=== PATIENT | female | born 1970 | race Caucasian/White ===

== ENCOUNTER 2020-11-17 19:54 | Emergency (ER) | payer SELFPAY ==
[~2020-11-17] VITALS: Ht 177.8 cm; Wt 120.2 kg
[2020-11-17 21:04] LABS: BASOPHILS ABSOLUTE AUTO 0.08 K/mm3 (0.00-0.23); BASOPHILS PERCENT AUTO 1 % (0-2); EOSINOPHILS ABSOLUTE AUTO 0.44 K/mm3 (0.00-0.68); EOSINOPHILS PERCENT AUTO 6 % (0-6); Hemoglobin 13.8 g/dL (11.5-16.0); IMMATURE GRAN ABSOLUTE AUTO 0.04 K/mm3 (0.00-0.10); IMMATURE GRAN PERCENT AUTO 1 % (0-1); LYMPHOCYTES ABSOLUTE AUTO 2.19 K/mm3 (0.84-5.20); LYMPHOCYTES PERCENT AUTO 32 % (21-46); MONOCYTES ABSOLUTE AUTO 0.58 K/mm3 (0.16-1.47); MONOCYTES PERCENT AUTO 9 % (4-13); Mean Corpuscular HGB 36.2 pg (26.0-34.0); Mean Corpuscular HGB Conc 34.5 g/dL (31.5-36.5); Mean Corpuscular Volume 105 fL (80-100); Mean Platelet Volume 9.4 fL (9.1-12.4); NEUTROPHILS ABSOLUTE AUTO 3.53 K/mm3 (1.96-9.15); NEUTROPHILS PERCENT AUTO 51 % (41-73); Platelet Count 274 K/mm3 (150-400); RDW Coefficient Variation 13.3 % (11.7-14.2); RDW Standard Deviation 51.6 fL (35.1-46.3); Red Blood Cell Count 3.81 M/mm3 (3.80-5.20); White Blood Cell Count 6.86 K/mm3 (4.00-11.30)
[2020-11-17 21:22] LABS: Alanine Aminotransfer (ALT/SGP 30 U/L (12-78); Albumin, Blood 3.2 g/dL (3.4-5.0); Albumin/Globulin Ratio 0.8 (0.8-1.8); Alk Phos 91 U/L (50-136); Anion Gap 4 mmol/L (6-16); Aspartate Aminotrans (AST/SGOT 29 U/L (12-37); Bilirubin, Total 0.2 mg/dL (0.1-1.0); Blood Urea Nitrogen 14 mg/dL (8-24); Bun/Creatinine Ratio 18.6 (12.0-20.0); CO2, Blood 27 mmol/L (21-32); Calcium, Blood 8.3 mg/dL (8.5-10.1); Chloride, Blood 109 mmol/L (98-108); Creatinine, Blood 0.75 mg/dL (0.40-1.00); Globulin, Blood 3.8 g/dL (2.2-4.0); Glomerular Filtration Rate >60 (60-); Glucose, Blood 79 mg/dL (70-99); Sodium, Blood 140 mmol/L (136-145); Troponin I <0.015 ng/mL (0.000-0.040)
[2020-11-17] MEDS ORDERED: NAPR220 PO (22:58)
[2020-11-17] MEDS ORDERED: ALBUTEROL0.63 MG/3 (22:59)
[2020-11-18] MEDS ORDERED: IPRAT-ALBUT 0.5-3 ML NEB (00:08)
== END 2020-11-18 00:32 | disposition home or self-care (01) ==
LOC: ER 19:54
PROVIDERS: Physician Assistant
DX: R05 Cough (principal); R06.00 Dyspnea, unspecified; J45.909 Unspecified asthma, uncomplicated; F17.210 Nicotine dependence, cigarettes, uncomplicated; Z79.899 Other long term (current) drug therapy
CPT/HCPCS: 71045; 80053; 83690; 83880; 84484; 85025; 93005; 93010; 94640; 99285-25; A9270

== ENCOUNTER 2021-03-21 19:51 | Emergency (ER) | payer SELFPAY ==
[~2021-03-21] VITALS: Ht 177.8 cm; Wt 127.0 kg
[~2021-03-21 19:51] MED LIST: ALBUTEROL0.63 MG/3; IPRAT-ALBUT 0.5-3 ML NEB; NAPR220 PO
[2021-03-21 21:17] LABS: BASOPHILS ABSOLUTE AUTO 0.06 K/mm3 (0.00-0.23); BASOPHILS PERCENT AUTO 1 % (0-2); EOSINOPHILS ABSOLUTE AUTO 0.44 K/mm3 (0.00-0.68); EOSINOPHILS PERCENT AUTO 7 % (0-6); Hematocrit 38.4 % (33.0-51.0); Hemoglobin 12.7 g/dL (11.5-16.0); IMMATURE GRAN ABSOLUTE AUTO 0.03 K/mm3 (0.00-0.10); IMMATURE GRAN PERCENT AUTO 1 % (0-1); LYMPHOCYTES ABSOLUTE AUTO 2.26 K/mm3 (0.84-5.20); LYMPHOCYTES PERCENT AUTO 36 % (21-46); MONOCYTES ABSOLUTE AUTO 0.54 K/mm3 (0.16-1.47); MONOCYTES PERCENT AUTO 9 % (4-13); Mean Corpuscular HGB 35.3 pg (26.0-34.0); Mean Corpuscular HGB Conc 33.1 g/dL (31.5-36.5); Mean Corpuscular Volume 107 fL (80-100); Mean Platelet Volume 9.3 fL (9.1-12.4); NEUTROPHILS ABSOLUTE AUTO 3.02 K/mm3 (1.96-9.15); NEUTROPHILS PERCENT AUTO 48 % (41-73); Platelet Count 256 K/mm3 (150-400); RDW Coefficient Variation 13.9 % (11.7-14.2); White Blood Cell Count 6.35 K/mm3 (4.00-11.30)
[2021-03-21 21:35] LABS: Alanine Aminotransfer (ALT/SGP 22 U/L (12-78); Albumin, Blood 3.2 g/dL (3.4-5.0); Albumin/Globulin Ratio 0.9 (0.8-1.8); Alk Phos 94 U/L (50-136); Anion Gap 4 mmol/L (6-16); Aspartate Aminotrans (AST/SGOT 15 U/L (12-37); Bilirubin, Total 0.2 mg/dL (0.1-1.0); Blood Urea Nitrogen 23 mg/dL (8-24); Bun/Creatinine Ratio 31.3 (12.0-20.0); CO2, Blood 25 mmol/L (21-32); Calcium, Blood 8.5 mg/dL (8.5-10.1); Chloride, Blood 112 mmol/L (98-108); Creatinine, Blood 0.73 mg/dL (0.40-1.00); Globulin, Blood 3.4 g/dL (2.2-4.0); Glomerular Filtration Rate >60 (60-); Glucose, Blood 88 mg/dL (70-99); Potassium, Blood 3.8 mmol/L (3.5-5.5); Sodium, Blood 141 mmol/L (136-145); Total Protein, Blood 6.6 g/dL (6.4-8.2)
[2021-03-21 23:02] LABS: Source, Urine Clean Catch
[2021-03-21 23:08] LABS: Bilirubin, Urine Neg (Neg); Blood, Urine 1+ (Neg); Glucose Qualitative, Urine Neg (Neg); Ketones, Urine Neg (Neg); Leukocyte Esterase, Urine 1+ (Neg); Nitrite, Urine Neg (Neg); Protein, Urine 1+ (Neg); Specific Gravity, Urine 1.025 (1.003-1.022); Urobilinogen, Urine NORM (Normal)
[2021-03-21 23:16] LABS: Color, Urine Yellow (P-Yellow)
[2021-03-21 23:17] LABS: Amorphous Light (0-Heavy); Appearance, Urine Clear (Clear); Bacteria Few /hpf; Mucus Light (0-Heavy); Squamous Epithelial Cells Few /hpf (Few); White Blood Cells, Urine Rare /hpf (0-5)
[2021-03-21] MEDS ORDERED: CLOBETTC TOP (23:40)
[2021-03-21] MEDS ORDERED: SULTRIDS PO (23:40)
[2021-03-21] MEDS ORDERED: FURO20 PO (23:40)
== END 2021-03-21 23:58 | disposition home or self-care (01) ==
LOC: ER 19:51
PROVIDERS: Physician Assistant
DX: L72.3 Sebaceous cyst (principal); R60.9 Edema, unspecified; B35.9 Dermatophytosis, unspecified
CPT/HCPCS: 80053; 81001; 85025; 99283

== ENCOUNTER → 2021-07-18 | Outpatient (CLI) | payer OTHER ==
[~2021-07-18] MED LIST changes: +CLOBETTC TOP; +FURO20 PO; +SULTRIDS PO
[2021-07-21 09:07] LABS: CHLAMYDIA TRACHOMATIS, NAA Negative (Negative); HPV 16 Negative (Negative); HPV 18 Negative (Negative); HPV OTHER HR TYPES Positive (Negative)
== END | disposition home or self-care (01) ==
LOC: LAB SHORT 11:30 → LAB 11:30
PROVIDERS: Family Medicine
DX: Z01.419 Encounter for gynecological examination (general) (routine) without abnormal findings (principal)
CPT/HCPCS: 87491; 87591; 87624; 87625; G0123

== ENCOUNTER 2021-08-06 01:06 | Emergency (ER) | payer OTHER ==
[~2021-08-06] VITALS: Ht 175.3 cm; Wt 132.0 kg
[2021-08-06] MEDS ORDERED: ESCI10 PO (01:31)
== END 2021-08-06 03:16 | disposition home or self-care (01) ==
LOC: ER 01:06
DX: S01.81XA Laceration without foreign body of other part of head, initial encounter (principal); Y04.8XXA Assault by other bodily force, initial encounter; Z79.899 Other long term (current) drug therapy; F17.210 Nicotine dependence, cigarettes, uncomplicated
CPT/HCPCS: 12002; 70450; 99283-25

== ENCOUNTER 2022-06-20 16:03 | Emergency (ER) | payer OTHER ==
[~2022-06-20] VITALS: Ht 172.7 cm; Wt 91.6 kg
[~2022-06-20 16:03] MED LIST changes: +ESCI10 PO
[2022-06-20 17:40] LABS: BASOPHILS ABSOLUTE AUTO 0.08 K/mm3 (0.00-0.23); BASOPHILS PERCENT AUTO 1 % (0-2); EOSINOPHILS PERCENT AUTO 4 % (0-6); Hematocrit 37.7 % (33.0-51.0); Hemoglobin 12.5 g/dL (11.5-16.0); IMMATURE GRAN ABSOLUTE AUTO 0.11 K/mm3 (0.00-0.10); IMMATURE GRAN PERCENT AUTO 1 % (0-1); LYMPHOCYTES ABSOLUTE AUTO 1.92 K/mm3 (0.84-5.20); LYMPHOCYTES PERCENT AUTO 17 % (21-46); MONOCYTES ABSOLUTE AUTO 0.87 K/mm3 (0.16-1.47); MONOCYTES PERCENT AUTO 8 % (4-13); Mean Corpuscular HGB 33.3 pg (26.0-34.0); Mean Corpuscular HGB Conc 33.2 g/dL (31.5-36.5); Mean Corpuscular Volume 101 fL (80-100); Mean Platelet Volume 8.8 fL (9.1-12.4); NEUTROPHILS ABSOLUTE AUTO 7.67 K/mm3 (1.96-9.15); NEUTROPHILS PERCENT AUTO 69 % (41-73); Platelet Count 500 K/mm3 (150-400); RDW Coefficient Variation 12.2 % (11.7-14.2); RDW Standard Deviation 45.4 fL (35.1-46.3); Red Blood Cell Count 3.75 M/mm3 (3.80-5.20); White Blood Cell Count 11.05 K/mm3 (4.00-11.30)
[2022-06-20 18:28] LABS: Albumin, Blood 2.2 g/dL (3.4-5.0); Albumin/Globulin Ratio 0.4 (0.8-1.8); Bilirubin, Total 0.1 mg/dL (0.1-1.0); Bun/Creatinine Ratio 18.2 (12.0-20.0); Creatinine, Blood 0.55 mg/dL (0.40-1.00); Globulin, Blood 5.5 g/dL (2.2-4.0); Potassium, Blood 3.5 mmol/L (3.5-5.5); Total Protein, Blood 7.7 g/dL (6.4-8.2)
[2022-06-20] MEDS ORDERED: LEVO750 PO (18:59)
== END 2022-06-20 19:11 | disposition home or self-care (01) ==
LOC: ER 16:03
PROVIDERS: Student in an Organized Health Care Education/Training Program
DX: J18.9 Pneumonia, unspecified organism (principal); J45.909 Unspecified asthma, uncomplicated; F17.210 Nicotine dependence, cigarettes, uncomplicated; Z79.899 Other long term (current) drug therapy
CPT/HCPCS: 36415; 71046; 80053; 85025; A9270

== ENCOUNTER → 2022-07-29 | Outpatient (CLI) | payer OTHER ==
[~2022-07-29] MED LIST changes: +LEVO750 PO
[2022-07-31 01:07] LABS: CHLAMYDIA TRACHOMATIS, NAA Negative (Negative); HPV 16 Negative (Negative); HPV 18 Negative (Negative); HPV OTHER HR TYPES Positive (Negative)
== END ==
LOC: LAB SHORT 10:36 → LAB 10:36
PROVIDERS: Advanced Practice Midwife
DX: Z01.419 Encounter for gynecological examination (general) (routine) without abnormal findings (principal); Z11.3 Encounter for screening for infections with a predominantly sexual mode of transmission
CPT/HCPCS: 87491; 87591; 87624; G0123

== ENCOUNTER → 2022-09-03 | Outpatient (CLI) | payer OTHER | END | disposition home or self-care (01) | LOC: LAB SHORT 11:15 → PLD 11:15 → LAB 11:15 | DX: R87.810 Cervical high risk human papillomavirus (HPV) DNA test positive (principal) | CPT/HCPCS: 88305 ==

== ENCOUNTER 2022-11-28 07:27 | Day surgery (SDC) | payer OTHER ==
[~2022-11-28] VITALS: Ht 175.3 cm; Wt 87.0 kg
[2022-11-28] MEDS ORDERED: GABA300 PO (08:41)
[2022-11-28] MEDS ORDERED: FLUO10 PO (08:41)
[2022-11-28] MEDS ORDERED: TRAZ50 PO (08:42)
[2022-11-28] MEDS ORDERED: Atarax10 MG PO (08:42)
[2022-11-28] MEDS ORDERED: MELA3 PO (08:42)
[2022-11-28 10:29] VITALS: BP 105/65
== END 2022-11-28 11:09 | disposition home or self-care (01) ==
LOC: ORSCSDS 07:27
PROVIDERS: Surgery
PROC: 0DBQXZX Excision of Anus, External Approach, Diagnostic (ICD-10-PCS; principal; 2022-11-28 09:15)
DX: C21.0 Malignant neoplasm of anus, unspecified (principal); K62.89 Other specified diseases of anus and rectum; J45.909 Unspecified asthma, uncomplicated; Z79.899 Other long term (current) drug therapy; F17.210 Nicotine dependence, cigarettes, uncomplicated; F32.A Depression, unspecified; F43.10 Post-traumatic stress disorder, unspecified
CPT/HCPCS: 88305; 88341; 88342; A9270; J0690; J1100; J2250; J2405; J2704; J2765; J3010; J7120

== ENCOUNTER 2024-12-16 08:38 | Day surgery (SDC) | payer OTHER ==
[2024-12-16] VITALS (11 sets, daily range): BP systolic 103–128; BP diastolic 66–83
[~2024-12-16] VITALS: Ht 170.2 cm; Wt 85.0 kg
--- NOTE | 2024-12-16 07:23 | NUR ---
12/16/24 0723 Derian Sherman MONITOR INTACT WITH CONTINUOUS PULSE OXIMETRY, CONTINUOUS END TITAL CO2, 3-LEAD EKG AND INTERMITTENT BLOOD PRESSURE.Bite Block Placed
[~2024-12-16 08:38] MED LIST changes: +ACET500 PO; +ALBU90OI INH; -ALBUTEROL0.63 MG/3; +CeFAZolin Sodium 2,000 MG in NS 100 ML IV SCH; +DISU250 PO; +Dexamethasone Sod Phos 10 MG/ML 1ML VIAL ONE; +Dexmedetomidine HCL 200 MCG / 2 ML ONE; +FERSU300 PO; +FLUO10 PO; +GABA300 PO; +Hydroxyzine HCl50 MG PO; +Ketorolac Tromethamine 30mg Vial ONE; +Lactated Ringer's 1,000 ML IV SCH; +Lidocaine HCl 2% 20 ML MDV ONE; +Lidocaine HCl 4% 5 ML SDA ONE; +MELATONIN5 M1 PO; +MULTI-VITAMIN1 EAC2 PO; +Metoclopramide HCl 5MG / ML 2ML Vial ONE; +NICO21TP TOP; +Ondansetron HCl 2 MG / ML 2ML Vial ONE; +Rocuronium Bromide 10 MG/ML 5ML Injection IV ONE; +THERA-D2000 UNIT PO; +TRAZ50 PO; +Ventolin5 MG/1 ML INH; +propofoL 0 ML IV ONE; +propofoL 150 ML IV ONE
[2024-12-16] MEDS ORDERED: CeFAZolin Sodium 2,000 MG in NS 100 ML IV SCH (09:50)
[2024-12-16] MEDS ORDERED: Lactated Ringer's 1,000 ML IV SCH (09:50)
--- NOTE | 2024-12-16 09:58 | NUR ---
NO HCG INDICATED. PATIENT STATES SHE HAS GONE THROUGH MENOPAUSE WITH NO PERIODS OVER 12 MONTHS.
[2024-12-16] MEDS ORDERED: Bupivacaine 0.5% HCl 5 MG/ML 30MLVIAL ONE (10:07)
[2024-12-16] MEDS ORDERED: Bupivacaine 0.25% Epi 1:200000 30 ML Vial ONE (10:09)
[2024-12-16] MEDS ORDERED: CeFAZolin Sodium 2,000 MG VIAL ONE (10:11)
[2024-12-16] MEDS ORDERED: FentaNYL Citrate 50 MCG/ML 5 ML Injection ONE (10:50)
[2024-12-16] MEDS ORDERED: Rocuronium Bromide 10 MG/ML 5ML Injection IV ONE (10:50)
[2024-12-16] MEDS ORDERED: Ketorolac Tromethamine 30mg Vial ONE (10:50)
[2024-12-16] MEDS ORDERED: Ondansetron HCl 2 MG / ML 2ML Vial ONE ×2 (10:50→13:38)
[2024-12-16] MEDS ORDERED: Dexamethasone Sod Phos 10 MG/ML 1ML VIAL ONE (10:50)
[2024-12-16] MEDS ORDERED: propofoL 20 ML IV ONE (10:50)
--- NOTE | 2024-12-16 11:07 | NUR ---
DURING ADMISSION TO DAY SURGERY, PATIENT MENTIONED BEING HOMELESS AND THAT SHE HAD A SAFE PLACE TO RECOVER WHERE SHE HAD ACCESS TO SHOWERS IF NEEDED. PATIENT'S PERSONAL CONTACT AND DISCHARGE RIDE IS GARRETT ERWIN, WITH [facility], WHO PATIENT STATED WAS HER COUNCELOR. CALLED PATIENT CRYSTAL GROWING TECHNICIAN TO SEE IF PATIENT HAD ACCESS TO ADDITIONAL RESOURCES AT DISCHARGE AND WAS TOLD THAT [facility] COUNCELOR WOULD HAVE KNOWLEDGE OF ALL RESOURCES AND THAT THIS HOSPITAL WOULD NOT HAVE ANY ADDITIONAL RESOURCE INFORMATION THAN [facility]. PATIENT'S DENTURES AND GLASSES REMOVED AND PLACED IN PACU FOR SAFE KEEPING DURING SURGERY.
[2024-12-16] MEDS ORDERED: HYDROmorphone HCl/Pf 1MG SYR ONE (12:08)
[2024-12-16] MEDS ORDERED: HYDROmorphone HCl/Pf 1MG SYR IV PRN ×2 (13:00)
[2024-12-16] MEDS ORDERED: Labetalol HCL 5 MG/ML 4ML Injection (Single Dose) IV PRN (13:00)
[2024-12-16] MEDS ORDERED: Albuterol 2.5 MG/3 ML VIAL INH PRN (13:00)
[2024-12-16] MEDS ORDERED: FentaNYL Citrate 50 MCG/ML 2 ML Injection IV PRN (13:00)
[2024-12-16] MEDS ORDERED: HydrALAZINE HCl 20 MG / ML 1ML Vial IV PRN (13:00)
[2024-12-16] MEDS ORDERED: Ondansetron HCl 2 MG / ML 2ML Vial IV PRN (13:05)
[2024-12-16] MEDS ORDERED: Atropine Sulfate 0.1 MG/ML 10ML SYR IV PRN (13:05)
[2024-12-16] MEDS ORDERED: Metoclopramide HCl 5MG / ML 2ML Vial IV PRN (13:05)
[2024-12-16] MEDS ORDERED: Ketorolac Tromethamine 30mg Vial IV PRN (13:10)
[2024-12-16] MEDS ORDERED: Sugammadex Sodium 200 MG/2ML SDV (100 MG/ML) ONE (13:18)
[2024-12-16] MEDS ORDERED: Metoclopramide HCl 5MG / ML 2ML Vial ONE (13:40)
[2024-12-16] MEDS ORDERED: HYDROcodone 5-APAP 325 TAB PO PRN (14:00)
--- NOTE | 2024-12-16 15:33 | NUR ---
Discharge instructions reviewed with patient. Patient verbalizes understanding. Copy given to patient to take home. Dressings x4 c/d/i. ABD binder in place. Ice pack provided. Prescription filled by TIFFANY sandra. Patient States Post-Procedure ride home has been arranged. Discharged via wheelchair to private car for ride home.
== END 2024-12-16 15:35 | disposition home or self-care (01) ==
LOC: ORSCMMR 08:38
PROVIDERS: Surgery
PROC: 8E0W4CZ Robotic Assisted Procedure of Trunk Region, Percutaneous Endoscopic Approach (ICD-10-PCS; principal; 2024-12-16 12:30)
PROC: 0WUF4JZ Supplement Abdominal Wall with Synthetic Substitute, Percutaneous Endoscopic Approach (ICD-10-PCS; principal; 2024-12-16 12:30)
DX: K42.0 Umbilical hernia with obstruction, without gangrene (principal); J45.909 Unspecified asthma, uncomplicated; F17.210 Nicotine dependence, cigarettes, uncomplicated; F31.9 Bipolar disorder, unspecified; F42.9 Obsessive-compulsive disorder, unspecified; F43.10 Post-traumatic stress disorder, unspecified
CPT/HCPCS: A9270; C1781; J0690; J1100; J1171; J1885; J2003; J2405; J2704; J2765; J3010; J7120

== ENCOUNTER → 2025-06-27 | Outpatient (CLI) | payer OTHER ==
[~2025-06-27] MED LIST changes: -CeFAZolin Sodium 2,000 MG in NS 100 ML IV SCH; -Dexamethasone Sod Phos 10 MG/ML 1ML VIAL ONE; -Dexmedetomidine HCL 200 MCG / 2 ML ONE; -Ketorolac Tromethamine 30mg Vial ONE; -Lactated Ringer's 1,000 ML IV SCH; -Lidocaine HCl 2% 20 ML MDV ONE; -Lidocaine HCl 4% 5 ML SDA ONE; -Metoclopramide HCl 5MG / ML 2ML Vial ONE; -Ondansetron HCl 2 MG / ML 2ML Vial ONE; -Rocuronium Bromide 10 MG/ML 5ML Injection IV ONE; -propofoL 0 ML IV ONE; -propofoL 150 ML IV ONE
[2025-06-29 11:38] LABS: C. TRACHOMATIS BY TMA,THINPREP Negative (Negative); N. GONORRHOEAE BY TMA,THINPREP Negative (Negative)
== END ==
LOC: LAB SHORT 14:29 → LAB 14:29
PROVIDERS: Family Medicine
DX: Z01.419 Encounter for gynecological examination (general) (routine) without abnormal findings (principal); Z11.3 Encounter for screening for infections with a predominantly sexual mode of transmission
CPT/HCPCS: 87491; 87591; 87624; G0145